=== PATIENT | male | born 1995 | race Caucasian/White ===

== ENCOUNTER 2017-01-27 08:08 | Emergency (ER) | payer SELFPAY ==
[~2017-01-27] VITALS: Ht 177.8 cm; Wt 70.0 kg
[2017-01-27] MEDS ORDERED: DIPHENHYDRAMINE 50MG CAPSULE PO ONE (08:45)
[2017-01-27 10:17] VITALS: BP 114/75
== END 2017-01-27 10:45 | disposition home or self-care (01) ==
LOC: ER 08:35
DX: T47.0X5A Adverse effect of histamine H2-receptor blockers, initial encounter (principal); F11.10 Opioid abuse, uncomplicated; Y92.018 Other place in single-family (private) house as the place of occurrence of the external cause
CPT/HCPCS: 99283; Q0163

== ENCOUNTER 2020-02-01 14:15 | Emergency (ER) | payer MEDICAID ==
[~2020-02-01] VITALS: Ht 170.2 cm; Wt 120.0 kg
[2020-02-01 15:28] LABS: CLARITY URINE CLEAR (CLEAR); COLOR URINE YELLOW (YELLOW); KETONES URINE NEGATIVE (NEGATIVE); LEUKOCYTE ESTERASE URINE 3+ (NEGATIVE); NITRITE URINE NEGATIVE (NEGATIVE); OCCULT BLOOD URINE 2+ (NEGATIVE); PH URINE 6.5 (4.5-8.0); PROTEIN URINE 1+ (NEGATIVE); SPECIFIC GRAVITY URINE 1.018 (1.005-1.030)
[2020-02-01] MEDS ORDERED: CEFTRIAXONE SODIUM 250 MG/VIAL IM NR (15:45)
[2020-02-01] MEDS ORDERED: DOXYCYCLINE HYCLATE 100MG CAPSULE PO NR (15:45)
[2020-02-01] MEDS ORDERED: LIDOCAINE HCL/PF 1% 10 MG/ML 5ML VIAL IJ NR (16:00)
[2020-02-01 16:56] VITALS: BP 139/81
== END 2020-02-01 16:59 | disposition home or self-care (01) ==
LOC: ER 14:32
DX: N50.811 Right testicular pain (principal); R30.0 Dysuria; F17.200 Nicotine dependence, unspecified, uncomplicated; F12.10 Cannabis abuse, uncomplicated; F11.10 Opioid abuse, uncomplicated; Z98.890 Other specified postprocedural states; Z11.3 Encounter for screening for infections with a predominantly sexual mode of transmission
CPT/HCPCS: 76870; 81003; 87086; 87491; 87591; 93005; 93976; 96372; 99285; J0696

== ENCOUNTER 2021-06-20 09:33 | Emergency (ER) | payer MEDICAID ==
[~2021-06-20] VITALS: Ht 167.6 cm; Wt 80.0 kg
[2021-06-20 09:43] VITALS: BP 138/77
[2021-06-20 10:29] LABS: CLARITY URINE CLEAR (CLEAR); COLOR URINE YELLOW (YELLOW); KETONES URINE NEGATIVE (NEGATIVE); LEUKOCYTE ESTERASE URINE TRACE (NEGATIVE); NITRITE URINE NEGATIVE (NEGATIVE); OCCULT BLOOD URINE NEGATIVE (NEGATIVE); PH URINE 7.5 (4.5-8.0); PROTEIN URINE NEGATIVE (NEGATIVE); SPECIFIC GRAVITY URINE 1.014 (1.005-1.030); UROBILINOGEN URINE 0.2 E.U./dL (0.2-1.0)
[2021-06-20] MEDS ORDERED: DOXY100T2 MT (11:37)
[2021-06-20] MEDS ORDERED: DOXYCYCLINE HYCLATE 100MG CAPSULE PO ONE (11:45)
[2021-06-20] MEDS ORDERED: CEFTRIAXONE SODIUM 500 MG/VIAL IM ONE (11:45)
[2021-06-23 04:06] LABS: NEISSERIA GONORRHOEAE NAA Negative (Negative)
== END 2021-06-20 12:06 | disposition home or self-care (01) ==
LOC: ER 09:33
DX: N45.3 Epididymo-orchitis (principal); N50.812 Left testicular pain; Z87.891 Personal history of nicotine dependence; F12.10 Cannabis abuse, uncomplicated
CPT/HCPCS: 76870; 81003; 87086; 87491; 87591; 93976; 96372; 99284; J0696